=== PATIENT | female | born 1935 | race Caucasian/White ===

== ENCOUNTER 2022-10-31 20:36 | Inpatient (IN) | payer OTHER ==
[~2022-10-31] VITALS: Ht 142.2 cm; Wt 56.7 kg
[2022-10-31] MEDS ORDERED: ATORVASTATIN CA20 MG (20:51)
[2022-10-31] MEDS ORDERED: AMLODIPINE-OLM1 EAC3 (20:52)
[2022-10-31] MEDS ORDERED: TRADJENTA5 MG (20:52)
[2022-10-31] MEDS ORDERED: METFORMIN HCL1000 M2 (20:52)
== END 2022-11-02 15:34 | disposition home or self-care (01) | DRG 69 ==
LOC: ER 20:36 → MEDJ 11-01 00:08
PROVIDERS: ADMIT Internal Medicine; ATTEND Internal Medicine
PROC: B020ZZZ Computerized Tomography (CT Scan) of Brain (ICD-10-PCS; 2022-10-31)
PROC: B345ZZZ Ultrasonography of Bilateral Common Carotid Arteries (ICD-10-PCS; principal; 2022-11-01)
PROC: B348ZZZ Ultrasonography of Bilateral Internal Carotid Arteries (ICD-10-PCS; 2022-11-01)
PROC: B030ZZZ Magnetic Resonance Imaging (MRI) of Brain (ICD-10-PCS; 2022-11-01)
PROC: B24BZZZ Ultrasonography of Heart with Aorta (ICD-10-PCS; 2022-11-01)
PROC: 4A12X4Z Monitoring of Cardiac Electrical Activity, External Approach (ICD-10-PCS; 2022-11-01)
DX: G45.9 Transient cerebral ischemic attack, unspecified (principal); I25.10 Atherosclerotic heart disease of native coronary artery without angina pectoris; I11.9 Hypertensive heart disease without heart failure; E11.40 Type 2 diabetes mellitus with diabetic neuropathy, unspecified
CPT/HCPCS: 70544; 70551